=== PATIENT | male | born 1930 | race African-American/Black ===

== ENCOUNTER 2017-03-09 07:41 | Inpatient (IN) | payer OTHER ==
[~2017-03-09] VITALS: Ht 182.9 cm; Wt 85.9 kg
--- NOTE | ~2017-03-09 | EKG ---
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 <ELECTRONICALLY SIGNED> By: Daniele Delvalle MD 03/09/17 2300 9 Daniele Delvalle MD /[facility]
--- NOTE | ~2017-03-09 | 2DMMODE ---
[facility] [place] [address] 2 D/M-MODE ECHOCARDIOGRAM Name: BHARATI VALVERDE Room #: 170-10 ADM IN M.R.#: [id number] Admission: 03/09/17 Attend Phys: Tomás Wright Discharge: Date of : 31 Date of Service: 03/09/17 1354 Report #: [id number] THIS REPORT FOR: //name// APPROVED REPORT Study performed: 03/09/2017 13:14:15 EXAM: Comprehensive 2D, Doppler, and color-flow Echocardiogram Patient Location: ER Room #: 10 Status: stat BSA: 2.07 HR: 85 bpm BP: 119/48 mmHg Other Information Study Quality: Poor Technically limited study due to body habitus, lung disease, inability to position patient. Indications Aortic Valve Disease COPD Hypertension/HDD 2D Dimensions LVOT Diam: 18.56 (18-24mm) Aortic Valve AoV Peak Nathaniel.: 5.29 m/s AO Peak Gr.: 112.12 mmHg LVOT Max P.29 mmHg AO Mean Gr.: 73.22 mmHg LVOT Mean P.66 mmHg AO V2 Mean: 4.07 m/s LVOT Max V: 1.04 m/s AO V2 VTI: 117.01 cm LVOT Mean V: 0.77 m/s CHRISTAL (VTI): 0.56 cm2 LVOT V1 VTI: 24.30 cm CHRISTAL Vmax: 0.53 cm2 SV (LVOT): 65.75 mL Left Ventricle The left ventricle is normal size. Mild concentric left ventricular hypertrophy. The left ventricular systolic function is normal. The left ventricular ejection fraction is within the normal range. LVEF is 60-65%. This study is not technically sufficient to allow evaluation of the LV diastolic function. [facility] [place] [address] [place] [address] 2 D/M-MODE ECHOCARDIOGRAM Name: BHARATI VALVERDE Room #: 170[facility] ADM IN .R.#: [id number] Admission: 03/09/17 Attend Phys: Tomás Wright Discharge: Date of : 31 Date of Service: 03/09/17 1354 Report #: [id number] Right Ventricle The right ventricle is normal size. The right ventricular systolic function is normal. Atria Left atrium is dilated. Right atrium is dilated. Aortic Valve The aortic valve is normal in structure. Aortic valve is calcified. Trace aortic regurgitation. Severe aortic stenosis. Mitral Valve The mitral valve is normal in structure. There is mitral annular calcification. Mild mitral regurgitation. No evidence of mitral valve stenosis. Tricuspid Valve The tricuspid valve is normal in structure. There is no tricuspid valve regurgitation noted. Pulmonic Valve The pulmonary valve is normal in structure. There is no pulmonic valvular regurgitation. Great Vessels The aortic root is normal in size. IVC is not well visualized. Pericardium Small to moderate pericardial effusion without evidence of tamponade <Conclusion> The left ventricle is normal size. LVEF is 60-65%. Mild concentric left ventricular hypertrophy. Left atrium is dilated. Right atrium is dilated. The aortic valve is normal in structure. Aortic valve is calcified. Trace aortic regurgitation. Severe aortic stenosis. The mitral valve is normal in structure. There is mitral annular calcification. Mild mitral regurgitation. The tricuspid valve is normal in structure. [facility] [place] [address] 2 D/M-MODE ECHOCARDIOGRAM Name: NICOLLEBHARATI Room #: 170-10 ADM IN M.R.#: [id number] Admission: 03/09/17 Attend Phys: Tomás Wright Discharge: Date of : 31 Date of Service: 03/09/17 1354 Report #: [id number] The pulmonary valve is normal in structure. Small to moderate pericardial effusion without evidence of tamponade <ELECTRONICALLY SIGNED> By: Gordon Oliver MD 03/09/17 1354 1354 135 Gordon Oliver MD /INF
--- NOTE | ~2017-03-09 | H ---
[facility] [place] [place] [address] HISTORY AND PHYSICAL Name: BHARATI VALVERDE Room #: 406-P ADM IN M.R.#: [id number] Admission: 03/09/17 Attend Phys: Hector Morgan MD Discharge: Date of : 31 Report #: [id number] THIS REPORT FOR: //name// CC: Radha Morgan DATE OF SERVICE: 03/09/2017 CHIEF COMPLAINT: Weakness. HISTORY OF PRESENT ILLNESS: Most of the information was obtained from the patient's at bedside. The patient has history of dementia and unable to give me much history. The patient has history of CVA, dementia, hypothyroidism, diabetes and hypertension. He was brought into the Emergency Room because of increasing weakness. The patient's apparently called Dr. Downey couple of days ago and was instructed to hold off on the Lasix. He has had some low-grade fever. No cough, expectoration. He does have chronic shortness of breath and wheezing. The patient was apparently found to be saturating around 85% when EMS arrived. Workup in the Emergency Room so far showed an elevated troponin, also positive for influenza. PAST MEDICAL HISTORY: Significant for CVA, dementia. He has right-sided weakness, hypertension, hyperlipidemia, diabetes, anemia, depression, COPD, hypothyroidism, prostate cancer. PAST SURGICAL HISTORY: Significant for lithotripsy, TURP, right rotator cuff . ALLERGIES: THE PATIENT IS ALLERGIC TO AVELOX, PENICILLIN, LORAZEPAM, PLEASE LOOK AT THE NURSING DOCUMENTATION FOR REACTION. HOME MEDICATIONS: Reviewed, please look at the nursing documentation. SOCIAL HISTORY: The patient lives at home. He has history of dementia. No history of any smoking, alcohol abuse at present. REVIEW OF SYSTEMS: Unable to obtain. FAMILY HISTORY: Unable to obtain. PHYSICAL EXAMINATION: VITAL SIGNS: Reviewed. Blood pressure is 127/48. Heart rate is 90 per minute, afebrile. The patient is saturating 97% on 2 liters of oxygen. GENERAL: He is not in any acute respiratory distress. He does answer some simple questions and follows command. THROAT: He has a dry oral mucosa. [facility] [address] [place] [address] HISTORY AND PHYSICAL Name: BHARATI VALVERDE Room #: 406-P [facility] IN M.R.#: [id number] Admission: 03/09/17 Attend Phys: Hector Morgan MD Discharge: Date of : 31 Report #: [id number] NECK: Supple, no JVD, no bruit, no lymphadenopathy. CARDIOVASCULAR: S1, S2. No S3. CHEST: Bilateral air entry present, mostly clear, few wheezes noted in the bases. ABDOMEN: Soft, bowel sounds present, no mass, no organomegaly, no tenderness. PERIPHERY: No pedal edema. LABORATORY DATA: Reviewed. Lactic acid was then is elevated at 3.2. His hemoglobin is 13.2 and platelet is 142. BUN and creatinine are 19 and 1.3. Troponin is 1.50. TSH 2.20. EKG showed sinus tachycardia, abnormal R-wave progression, early transition. Chest x-ray showed no acute process. ASSESSMENT: 1. Generalized weakness and debility secondary to influenza. 2. Influenza. The patient will be started on p.o. Tamiflu. 3. Dehydration. The patient will be started on gentle IV fluids. We will hold off on his Lasix. We will consult Physical and Occupational Therapy in a.m. 4. Elevated troponin, could be secondary to hypoxia. We will get serial troponin. The patient will be continued on aspirin. We will obtain echocardiogram. Project Archivist, Dr. Downey has been consulted. 5. Deep venous thrombosis prophylaxis. He will be on Lovenox. 6. Diabetes. The patient will be placed on sliding scale insulin. 7. History of dementia/cerebrovascular accident with right-sided weakness. 8. Elevated lactic acid, likely secondary to hypoxia, early sepsis. We will obtain blood cultures and start him on IV Zithromax. Treatment plan has been explained to the patient's at bedside in detail. <ELECTRONICALLY SIGNED> By: Hector Morgan MD 03/09/17 1859 1348 1451 Hector Morgan MD /nt
--- NOTE | ~2017-03-09 | HC ---
[facility] [place] [address] [place] [address] CONSULTATION Name: BHARATI VALVERDE Room #: [facility]- ADM IN M.R.#: [id number] Admission: 03/09/17 Attend Phys: Hector Morgan MD Discharge: Date of : 31 Report #: [id number] THIS REPORT FOR: //name// CC: Radha Morgan HISTORY OF PRESENT ILLNESS: The patient is an 86-year-old male who is known to myself. We do follow him somewhat longitudinally. He has been fairly debilitated with right-sided hemiparesis and critical aortic valve stenosis, recurrent heart failure issues, but he has been stable from that perspective. He is somehow functional class 2-3, lives with the and daughter. He has been out of the hospital for some time. I saw him last in the office in 06/2016. He has been compliant with his medications. He has had 3-4 days of increased somnolence and felt to be somewhat poor oral intake. We had held his diuretics for a couple of days. Came in with some shortness of breath and coughing. Subsequently, found to have influenza A. He was hypoxic initially. He is definitely progressively weak over the last few days. He is not really responding to me, although will respond to some stimuli. He has been maintained on holding Lasix, but then otherwise on venlafaxine, ProAir, Colace, allopurinol, baby aspirin, simvastatin, Lupron, Aricept, albuterol, Namenda, Synthroid. PAST MEDICAL HISTORY: Positive for the critical senile calcific aortic valve stenosis, hypertension, prior stroke with hemiparesis, hypercholesterolemia, lithotripsy, rotator cuff, TURP resection, aphasia, dementia, chronic kidney disease and diabetes. REVIEW OF SYSTEMS: Really not obtainable here. FAMILY HISTORY: His mother had cancer. Also, the sister with a renal cell. SOCIAL HISTORY: He is , accompanied by his . Prior tobacco user. No alcohol use. He is retired. LABORATORY WORK: Sodium 138, potassium 4.0, creatinine 1.3. BNP 876. H and H are 13 and 40, white count 6.2. Chest x-ray: No acute process. He is positive for influenza A. The troponin was 1.5. I suspect this is more of a mismatch hypoxemia driven. There is no acute infarct on his EKG. EKG is sinus rhythm with nonspecific changes, it is unchanged. PHYSICAL EXAMINATION: GENERAL: He is not responsive. VITAL SIGNS: Blood pressure is 120/54, pulse is 90s currently and regular. HEENT: Eyes reveal some arcus senilis. Pharynx has dry mucous membranes. NECK: Shows preserved diminished upstrokes. No JVD. LUNGS: Clear anteriorly. CARDIAC: S1, S2. Harsh systolic murmur is noted. The findings of the [facility] [address] [place] [address] CONSULTATION Name: BHARATI VALVERDE Room #: [facility]- ADM IN M.R.#: [id number] Admission: 03/09/17 Attend Phys: Hector Morgan MD Discharge: Date of : 31 Report #: [id number] on the last echo appeared to be more evidence of mild. There is a harsh murmur that is faint on this exam, upstrokes. ABDOMEN: Soft, slightly protuberant. EXTREMITIES: Reveal trace of edema. There is some hemiparesis. There is some atrophy on the right side. NEUROLOGIC: Not really obtainable. ASSESSMENT: 1. Influenza A with hypoxemia. 2. Troponin elevation, probable due to mismatch and not true ischemic event. No documented coronary artery disease. 3. Varying reports on degree of aortic valve stenosis. Heavily calcified. We will wait, repeat echo. 4. History of cerebrovascular accident with hemiparesis. 5. Hypertension. 6. Hypercholesterolemia. 7. Diabetes. RECOMMENDATIONS AND PLAN: Would repeat troponin and an echo, although I do not pursue this is a significant epicardial coronary disease. The patient is not responsive and at this point, would like to see how he responds to antibiotics and fluid hydration. There is some component of azotemia here. has power of sap ppm consultant and wants him to continue to be a full code. We will place him on a med/surg tele. We will continue to follow with you, but would continue more along the conservative lines and not looking for unless there would be hemodynamic instability or more evidence of LV compromise or ischemic event. I would not proceed for any intervention or catheterization lab at this time. We will follow with you. Thank you for asking me to assist care of this patient. <ELECTRONICALLY SIGNED> By: Michael Downey MD, FACC 03/13/17 0902 1315 0200 Michael Downey MD, FACC /nt
[~2017-03-09 07:41] MED LIST: ADULT LOW DOSE81 MG PO; ALBUTEROL2.5 MG/31 INH; ALBUTEROL2.5 MG/32 IH; ALLOPURINOL 30300 M1 PO; ARICEPT10 MG PO; BACTRIM DS TAB1 EACH PO; BD ULTRA-FINE1 EAC1 MC; CERTAGEN SOL1 BO1 NG; CLARITIN10 MG PO; CLOTRIMAZOLE-BE15 GM TOP; COLACE100 MG PO; FERRO-TIME325 MG PO; FUROSEMIDE 20 M20 M1 PO; GLIPIZIDE 10 MG10 MG PO; GLIPIZIDE ER10 MG PO; GLUCOTROL10 MG PO; GLUCOTROL5 MG PO; IRON CHEWS15 MG PO; LASIX 20 MG TAB20 MG PO; LEVOTHYROXIN0.025 MG PO; LUPRON; LUPRON DEPOT IM; MEGESTROL ACETA20 MG PO; METFORMIN 500500 MG PO; METOPROLOL TART25 MG PO; MUCINEX600 MG PO; NAMENDA 10 MG T10 MG PO; NIACIN 500 MG500 M1 PO; NIACINOL500 MG PO; NORCO 5-325 TA1 EACH PO; OMEGA-31000 MG PO; ONE DAILY MULT1 EAC2 PO; PAXIL 20 MG TAB20 M1 PO; PROAIR HFA8.5 GM INH; SIMVASTATIN40 MG PO; SIMVASTATIN80 MG PO; SYMBICORT80 MCG/4.1 INH; SYMBICORT80 MCG/4.5 INH; TOPROL XL25 MG PO; VENLAFAXINE HCL75 M2 PO; VITAMIN E400 UNIT PO; ZPAK PO; ZYRTEC 10 MG TA10 M1 PO
[2017-03-09 08:35] LABS: HEMATOCRIT 40.7 % (42.0-52.0); HEMOGLOBIN 13.1 gm/dL (14.0-18.0); MCH 28.6 pg (26.0-34.0); MCHC 32.2 g/dL (28.0-37.0); MCV 88.8 fL (80.0-100.0); RBC 4.58 mil/uL (4.50-6.00); RDW 15.3 % (10.5-14.5); WBC 6.2 thou/uL (4.0-11.0)
[2017-03-09 08:45] LABS: CALCIUM 8.9 mg/dL (8.5-10.1); CREATININE 1.3 mg/dL (0.7-1.3)
[2017-03-09 09:00] LABS: TROPONIN-I 1.5 ng/mL (<0.06)
[2017-03-09 13:06] VITALS: BP 127/48
[2017-03-09 13:55] VITALS: BP 127/48
[2017-03-09 14:25] VITALS: BP 133/52
[2017-03-09 20:44] VITALS: BP 141/57
[2017-03-09 23:54] VITALS: BP 135/55
[2017-03-10 04:12] VITALS: BP 131/56
[2017-03-10 06:32] LABS: HEMATOCRIT 35.3 % (42.0-52.0); HEMOGLOBIN 11.3 gm/dL (14.0-18.0); MCH 28.3 pg (26.0-34.0); MCHC 32.2 g/dL (28.0-37.0); PLATELET COUNT 127 thou/uL (150-400); RBC 4.01 mil/uL (4.50-6.00); RDW 15.4 % (10.5-14.5); WBC 5.1 thou/uL (4.0-11.0)
[2017-03-10 06:50] LABS: CALCIUM 8.1 mg/dL (8.5-10.1); CREATININE 1.1 mg/dL (0.7-1.3); POTASSIUM 4.2 mmol/L (3.5-5.1)
[2017-03-10 06:55] LABS: CHOLESTEROL 105 mg/dL (<200); HDL CHOLESTEROL 67 mg/dL (>40); LDL CHOLESTEROL 32 mg/dL (<100); SERUM ASSESSMENT Clear; TC:HDL 1.6 Ratio (Not establshd); TRIGLYCERIDE 34 mg/dL (<150); VLDL 7 mg/dL (<40)
[2017-03-10 08:00] VITALS: BP 140/61
[2017-03-10 08:30] LABS: ABSOLUTE NEUTROPHILS 4.5 thou/uL (1.4-8.2); METAMYELOCYTES 2 %
[2017-03-10 16:05] VITALS: BP 131/50
[2017-03-10 19:16] VITALS: BP 123/43
[2017-03-11 03:45] VITALS: BP 151/58
[2017-03-11 06:41] LABS: HEMATOCRIT 34.3 % (42.0-52.0); MCH 28.4 pg (26.0-34.0); MCHC 32.2 g/dL (28.0-37.0); RBC 3.89 mil/uL (4.50-6.00); RDW 15.4 % (10.5-14.5); WBC 5.5 thou/uL (4.0-11.0)
[2017-03-11 06:59] LABS: CALCIUM 7.9 mg/dL (8.5-10.1); CREATININE 1.1 mg/dL (0.7-1.3); POTASSIUM 3.8 mmol/L (3.5-5.1); TOTAL BILIRUBIN 0.2 mg/dL (<0.1-1.0); TOTAL PROTEIN 5.8 g/dL (6.4-8.2)
[2017-03-11 08:54] VITALS: BP 141/55
[2017-03-11 15:35] VITALS: BP 157/73
[2017-03-11 19:52] VITALS: BP 170/79
[2017-03-12 04:00] VITALS: BP 164/79
[2017-03-12 04:42] LABS: ALBUMIN 2.1 g/dL (3.4-5.0); CALCIUM 8.1 mg/dL (8.5-10.1); POTASSIUM 3.6 mmol/L (3.5-5.1); TOTAL BILIRUBIN 0.3 mg/dL (<0.1-1.0)
[2017-03-12 08:00] VITALS: BP 162/79
[2017-03-12 16:00] VITALS: BP 129/60
[2017-03-12 20:05] VITALS: BP 165/65
[2017-03-13 04:15] VITALS: BP 166/72
[2017-03-13 07:47] VITALS: BP 169/76
[2017-03-13] MEDS ORDERED: TAMIFLU30 MG PO (12:41)
[2017-03-13 13:33] VITALS: BP 169/76
[2017-03-13 16:32] VITALS: BP 170/86
[2017-03-13 20:00] VITALS: BP 154/72
[2017-03-14] VITALS: BP 148/78
[2017-03-14 04:00] VITALS: BP 140/62
[2017-03-14 07:53] VITALS: BP 118/72
[2017-03-14] MEDS ORDERED: AZITHROMYCIN 2250 MG PO (09:14)
== END 2017-03-14 13:45 | disposition home health service (06) | DRG 871 ==
LOC: ER 07:41 → EROBS 09:21 → 4N 09:21 → ENTRNSPT 03-14 13:28 → EDTRNSPTSTS 03-14 13:30 → 4N 03-14 13:45
PROVIDERS: Emergency Medicine; Hospitalist; Internal Medicine
DX: A41.9 Sepsis, unspecified organism (principal); E43 Unspecified severe protein-calorie malnutrition; I69.959 Hemiplegia and hemiparesis following unspecified cerebrovascular disease affecting unspecified side; I12.0 Hypertensive chronic kidney disease with stage 5 chronic kidney disease or end stage renal disease; J09.X2 Influenza due to identified novel influenza A virus with other respiratory manifestations; F03.90 Unspecified dementia, unspecified severity, without behavioral disturbance, psychotic disturbance, mood disturbance, and anxiety; E03.9 Hypothyroidism, unspecified; E78.00 Pure hypercholesterolemia, unspecified; F32.9 Major depressive disorder, single episode, unspecified; E11.22 Type 2 diabetes mellitus with diabetic chronic kidney disease; N18.9 Chronic kidney disease, unspecified; I35.8 Other nonrheumatic aortic valve disorders; E86.0 Dehydration; E78.5 Hyperlipidemia, unspecified; D69.6 Thrombocytopenia, unspecified; J44.9 Chronic obstructive pulmonary disease, unspecified; D64.9 Anemia, unspecified; Z87.442 Personal history of urinary calculi; Z88.1 Allergy status to other antibiotic agents; Z88.0 Allergy status to penicillin; Z88.8 Allergy status to other drugs, medicaments and biological substances; Z85.46 Personal history of malignant neoplasm of prostate; Z79.82 Long term (current) use of aspirin; Z79.899 Other long term (current) drug therapy
CPT/HCPCS: 10790

== ENCOUNTER → 2017-03-30 | Outpatient (CLI) | payer OTHER ==
[~2017-03-30] MED LIST changes: +AZITHROMYCIN 2250 MG PO; +TAMIFLU30 MG PO
[2017-03-30 10:40] LABS: CREATININE 1.4 mg/dL (0.7-1.3)
== END ==
LOC: LABMALL 09:56 → NUC 15:46
PROVIDERS: Urology
DX: N20.0 Calculus of kidney (principal); N28.89 Other specified disorders of kidney and ureter; F03.90 Unspecified dementia, unspecified severity, without behavioral disturbance, psychotic disturbance, mood disturbance, and anxiety

== ENCOUNTER 2018-03-22 15:50 | Inpatient (IN) | payer OTHER ==
[~2018-03-22] VITALS: Ht 182.9 cm; Wt 99.6 kg
[2018-03-22] VITALS (18 sets, daily range): BP systolic 79–149; BP diastolic 27–63
--- NOTE | 2018-03-22 16:00 | NUR ---
ASSUMED PT CARE, REPORT FROM OZZY SEE
[2018-03-22 16:12] LABS: ABSOLUTE NEUTROPHILS 3.2 thou/uL (1.4-8.2); BASOPHILS 0.2 % (0.0-2.0); EOSINOPHILS 0.2 % (0.0-3.0); HEMATOCRIT 28.5 % (42.0-52.0); HEMOGLOBIN 9.1 gm/dL (14.0-18.0); LYMPHOCYTES 35.8 % (24.0-44.0); MCH 29.4 pg (26.0-34.0); MCHC 31.8 g/dL (28.0-37.0); MCV 92.5 fL (80.0-100.0); MONOCYTES 6.7 % (1.0-8.0); PLATELET COUNT 175 thou/uL (150-400); POLYS 57.1 % (36.0-66.0); RBC 3.08 mil/uL (4.50-6.00); RDW 15.4 % (10.5-14.5); WBC 5.7 thou/uL (4.0-11.0)
--- NOTE | 2018-03-22 16:22 | EKG ---
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: [place] : 1930 Requested By: Nate Mckenna Order Number: [id number] MD: Waqas Rodriguez Measurements Intervals Inez Rate: 66 P: -22 [place]: 215 QRS: 36 QRSD: 78 T: 58 QT: 491 QTc: 515 Interpretive Statements Sinus rhythm First-degree AV block Abnormal R-wave progression, early transition Prolonged QT interval Compared to ECG 03/09/2017 08:40:44 Sinus tachycardia no longer present Electronically Signed On 03-22-2018 16:22:00 ROLL OPERATOR by Waqas Rodriguez [email or web address] <ELECTRONICALLY SIGNED> By: Waqas Rodriguez MD, [facility] 03/22/18 1622 1555 1555 Waqas Rodriguez MD, FACC /EPI
[2018-03-22 16:23] LABS: ANION GAP 13 mmol/L (7-16); BUN 63 mg/dL (7-18); CALCIUM 8.5 mg/dL (8.5-10.1); CHLORIDE 108 mmol/L (98-107); CO2 21 mmol/L (21-32); CREATININE 1.7 mg/dL (0.7-1.3); GLUCOSE 375 mg/dL (74-106); POTASSIUM 4.6 mmol/L (3.5-5.1); SODIUM 142 mmol/L (136-145)
[2018-03-22 16:27] LABS: APTT 23.8 Seconds (24.5-32.8); INR 1.1; PROTIME 11.4 Seconds (9.3-11.4)
[2018-03-22 16:30] LABS: ALBUMIN 2.2 g/dL (3.4-5.0); MAGNESIUM 2.1 mg/dL (1.8-2.4); SGOT 27 U/L (15-37); SGPT 24 U/L (30-65); TOTAL BILIRUBIN 0.1 mg/dL (<0.1-1.0); TOTAL PROTEIN 5.5 g/dL (6.4-8.2); TROPONIN-I <0.06 ng/mL (<0.06)
[2018-03-22 17:38] LABS: URINE BILIRUBIN NEGATIVE (Negative); URINE BLOOD 1+ (Negative); URINE CLARITY CLEAR; URINE COLOR YELLOW; URINE GLUCOSE-RANDOM* 3+ (Negative); URINE KETONES NEGATIVE (Negative); URINE LEUKOCYTES-REFLEX NEGATIVE (Negative); URINE NITRITE-REFLEX NEGATIVE (Negative); URINE PROTEIN (DIPSTICK) TRACE (Negative); URINE SPECIFIC GRAVITY 1.025 (1.005-1.035); URINE UROBILINOGEN 0.2 E.U./dl (0.2-1.0)
[2018-03-22 17:45] LABS: AMP/METHAMP Negative (Negative); BARBITURATES Negative (Negative); BENZODIAZEPINES Negative (Negative); COCAINE Negative (Negative); METHADONE Negative (Negative); OPIATES Negative (Negative); PCP Negative (Negative)
[2018-03-22 17:46] LABS: URINE RBC 0-2 Rare /HPF (0-2)
[2018-03-22 17:47] LABS: BACTERIA-REFLEX 1-9 Few /HPF (None Seen); CASTS None Seen /LPF (None Seen); CRYSTALS None Seen /LPF (None Seen); SQUAMOUS 0-3 Few /LPF (0-3); URINE WBC-REFLEX None Seen /HPF (0-5)
--- NOTE | 2018-03-22 17:52 | NUR ---
REPORT TO MITCH IN ICU
[2018-03-22 22:34] LABS: HEMATOCRIT 25.7 % (42.0-52.0); HEMOGLOBIN 8.3 gm/dL (14.0-18.0)
[2018-03-23] VITALS (29 sets, daily range): BP systolic 86–134; BP diastolic 27–49
[2018-03-23 05:27] LABS: HEMATOCRIT 23.5 % (42.0-52.0); HEMOGLOBIN 7.6 gm/dL (14.0-18.0); MCH 28.9 pg (26.0-34.0); MCHC 32.2 g/dL (28.0-37.0); RBC 2.61 mil/uL (4.50-6.00); RDW 15.1 % (10.5-14.5); WBC 7.1 thou/uL (4.0-11.0)
[2018-03-23 05:40] LABS: CALCIUM 8.1 mg/dL (8.5-10.1); CREATININE 1.2 mg/dL (0.7-1.3); POTASSIUM 4.7 mmol/L (3.5-5.1)
--- NOTE | 2018-03-23 06:44 | NUR ---
PT IS CONFUSED, PLEASANT. SEVERAL ATTEMPTS TO GET OUT BED. EASILY REDIRECTED AND FOLLOW COMMANDS. NO PAIN. VSS. AFEBRILE. NO BM DURING THE NIGHT. PROTONIX GTT ONGOING. WILL CONTINUE TO MONITOR.
[2018-03-23 14:14] LABS: HEMATOCRIT 22.4 % (42.0-52.0); HEMOGLOBIN 7.2 gm/dL (14.0-18.0)
--- NOTE | 2018-03-23 16:34 | NUR ---
ASSUMED CARE OF PT AT 0700 THIS SHIFT. PT HAS BEEN COOPERATIVE, HAS DENIED ANY PAIN THIS SHIFT. PT IS ORIENTED TO SELF AND SPOUSE, NOT ORIENTED TO SITUATION, PLACE, OR TIME - PT'S BASELINE. PT HAD EGD THIS SHIF, REFER TO RESULTS. PT HAS A FOLLOW UP EGD TOMRROW MORNING. PT HAS HAD SPOUSE IN ROOM, EDUCATION WAS PROVIDED. PLAN OF CARE IS TO CONTINUE TO MONITOR CLOSELY AT THIS TIME.
[2018-03-23 22:18] LABS: HEMATOCRIT 21.2 % (42.0-52.0); HEMOGLOBIN 6.8 gm/dL (14.0-18.0)
[2018-03-24] VITALS (28 sets, daily range): BP systolic 103–140; BP diastolic 35–65
[2018-03-24 05:14] LABS: HEMATOCRIT 24.3 % (42.0-52.0); HEMOGLOBIN 7.9 gm/dL (14.0-18.0); MCH 30.9 pg (26.0-34.0); MCHC 32.6 g/dL (28.0-37.0); MCV 94.7 fL (80.0-100.0); RBC 2.57 mil/uL (4.50-6.00); RDW 16.1 % (10.5-14.5); WBC 9.2 thou/uL (4.0-11.0)
[2018-03-24 05:19] LABS: CALCIUM 7.8 mg/dL (8.5-10.1); MAGNESIUM 1.8 mg/dL (1.8-2.4); POTASSIUM 3.8 mmol/L (3.5-5.1)
--- NOTE | 2018-03-24 05:56 | NUR ---
CONFUSED, DROWSY. RA. NO APPARENT PAIN. FOLLOW COMMANDS. VSS. AFEBRILE. 1 UNIT OF BLOOD GIVEN, HGB AT 7.9 THIS AM. URINE OUTPUT NOTED. WILL CONTINUE TO MONTIOR.
--- NOTE | 2018-03-24 12:06 | NUR ---
ASSUMED CARE OF PT AT 0700 THIS SHIFT. PT HAS BEEN COOPERATIVE, HAS DENIED ANY PAIN THIS MORNING. PT HAD EGD THIS MORNING, RESULTS ARE DOCUMENTED. PT TOLERTED PROCEDURE WELL, CURRENTLY RESTING COMFORTABLY IN ROOM. PT HAS HAD FAMILY VISIT, EDUCATION WAS PROVIDED. PLAN OF CARE IS TO CONTINUE TO MONITOR PT CLOSELY.
--- NOTE | 2018-03-24 15:38 | NUR ---
ASSUMED CARE AT 1300. PT ALERT TO SELF. PT APPEARS TO BE RESTING COMFORTABLY. PT VERY COOPERATIVE AND TURNS HIMSELF IN BED. AT BEDSIDE.
[2018-03-25] VITALS (44 sets, daily range): BP systolic 85–154; BP diastolic 24–59
--- NOTE | 2018-03-25 02:39 | NUR ---
ASSUMED PT CARE AT ABOUT 2300. PT WAS IN BED SLEEPING. VITAL SIGNS STABLE. ASSESSMENT CHARTED. NO COMPLAINTS OF PAIN. PT VERY PLEASANT AND SEEMED COMFORTABLE. PT TRIED TO GET OUT OF BED A FEW TIMES, FREQUENT REORIENTATION. PT ABLE TO FOLLOW SIMPLE COMMANDS. STILL VERY CONFUSED. HGB @ 2300 WAS 7.7. WILL RECHECK WITH MORNING LABS. RESTED WELL THROUGH THE NIGHT, PTROGRESING TOWARD PLAN OF CARE. WILL CONTINUE TO CLOSELY MONITOR.
[2018-03-25 05:23] LABS: HEMATOCRIT 22.8 % (42.0-52.0); HEMOGLOBIN 7.4 gm/dL (14.0-18.0); MCH 30.1 pg (26.0-34.0); MCHC 32.3 g/dL (28.0-37.0); MCV 93.2 fL (80.0-100.0); RBC 2.44 mil/uL (4.50-6.00); RDW 16.3 % (10.5-14.5); WBC 6.6 thou/uL (4.0-11.0)
[2018-03-25 05:29] LABS: CALCIUM 7.9 mg/dL (8.5-10.1); MAGNESIUM 1.8 mg/dL (1.8-2.4); POTASSIUM 3.4 mmol/L (3.5-5.1)
--- NOTE | 2018-03-25 15:13 | NUR ---
met with patient and at bedside. Patient with hx of dementia, sp with . Patient resides at home with spouse. There are approx 5 steps to enter home and bedroom on second level. patient does not use a walker but has one at home. Patient, spouse for approx [address]. 3 children, 2 sons and one dtr. Dtr assists with driving. If patient need for post acute care they would be interested in [facility]. patient admits with GI bleed, patient with bloody stools today.
--- NOTE | 2018-03-25 18:40 | NUR ---
VASCULAR ACCESS CONSULTED FOR A CL FOR THIS PT FOR MULITPLE IV MEDS, BLOOD TRANSFUSIONS AND IVF. CONSENTED AND TIME OUT COMPLETED WITH LEODAN SEE. ACCESSED LT IJ X1 ATTEMPT WITH US GUIDE AND USED HOSP P&P TO PLACED THE LINE. A 6FRTL 25CM LINE PLACED IN LT IJ WITH 5CM EXTERNAL WITH A BRISK BLOOD RETURN OBTAINED. A CXR REVEALED THE TIP AT THE CAJ AND IN GOOD POSITION FOR USE. PT DAISY WELL, LINE RELEASED TO RN FOR USE.
--- NOTE | 2018-03-25 19:41 | NUR ---
ASSUMED CARE OF PATIENT AT 0700. PT MAINTAINING ADEQUATE OXYGEN SATURATIONS ON 2L N/C. HR ELEVATED SLIGHTLY ALL DAY. BP ELEVATED FIRST EARLY THIS MORNING BUT BECAME "SOFT" IN THE AFTERNOON. DISCUSSED TREATMENT PLAN WITH FAMILY. PT HAD LARGE LIQUID DARK MAROON COLORED, FOUL-SMELLING STOOL. MAP <60. HGB DROPPED FROM 7.[address] SANCHEZ INFORMED OF CHANGE IN CONDITION. NEW ORDERS RECEIVED TO TRANSFUSE 2 UNITS PRBCS, CONTINUE PROTONIX GTT, LEAVE IN ICU, AND DELIVER A LITER BOLUS WHILE WAITING FOR BLOOD TO BE READY TO TRANSFUSE. RECEIVED ORDER FOR CENTRAL LINE AND LEVOPHED IF NEEDED FROM DR FRANCIS. BP IMPROVED. CONINUE TO MONITOR.
--- NOTE | 2018-03-25 20:00 | NUR ---
PT HAD A LARGE MAROON STOOL. BLOOD HAS INFUSED.
[2018-03-25 21:13] LABS: HEMATOCRIT 23.7 % (42.0-52.0); HEMOGLOBIN 8.2 gm/dL (14.0-18.0)
--- NOTE | 2018-03-25 22:30 | NUR ---
BATHING PT. ALL OF A SUDDEN PT GROWLED LOUDLY LIKE A BEAR AND SAT UP ON THE SIDE OF THE BED. HE TRIED TO SWING AT ME. SECURITY CALLED. PT IS VERY STRONG,. IT TOOK 4 RNS AND SECURITY TO CALM AND HOLD HIM DOWN FIELDWORK COORDINATOR Nicole GÓMEZ RN CALLED [facility] 10 MG IM ORDERED AND GIVEN FOR SEDATION. WILL CONT TO MONITOR CLOSELY.
[2018-03-26] VITALS (25 sets, daily range): BP systolic 110–166; BP diastolic 27–54
[2018-03-26 05:38] LABS: ABSOLUTE NEUTROPHILS 5.8 thou/uL (1.4-8.2); BASOPHILS 0.1 % (0.0-2.0); EOSINOPHILS 0.3 % (0.0-3.0); HEMATOCRIT 22.6 % (42.0-52.0); HEMOGLOBIN 7.4 gm/dL (14.0-18.0); MCH 28.9 pg (26.0-34.0); MCHC 32.7 g/dL (28.0-37.0); MCV 88.4 fL (80.0-100.0); MONOCYTES 8.9 % (1.0-8.0); PLATELET COUNT 88 thou/uL (150-400); POLYS 74.7 % (36.0-66.0); RBC 2.56 mil/uL (4.50-6.00); WBC 7.7 thou/uL (4.0-11.0)
--- NOTE | 2018-03-26 06:00 | NUR ---
PT HAS BEEN CALM ALL NOCT SINCE GEODON GIVEN. 450 CC UO THIS SHIFT REMAINS ON ROOM AIR. O2 SAT 100 %. AFEBRILE LUNGS CLEAR. NO FURTHER BLOODY STOOLS. PT HAS VERY FOUL FLATUS ODOR LIKE GI BLEEDING. BATHED REPSOITIONED. SINUS RHYTHM. WILL CONT TO MONITOR.
[2018-03-26 06:27] LABS: POTASSIUM 3.6 mmol/L (3.5-5.1)
--- NOTE | 2018-03-26 19:40 | NUR ---
ASSUMED CARE OF PT AT 0700. MAINTAINING ADEQUATE OXYGEN SATURATIONS ON ROOM AIR. VSS. SBP >120 ALL DAY TODAY. NOT ON VASOPRESSORS. NO MAROON COLORED LIQUD STOOLS TODAY, JUST PASSING FOUL SMELLING FLATUS. SMELL CONSISTENT WITH GI BLEED. DISCUSSED TREATMENT PLAN WITH (GRISEL). DUE TO DECREASE IN HGB AND ADDITIONAL MAROON STOOL ON GUYLINE OPERATOR, DR Alvarez PERFORMED EGD WITH CAUTERIZATION OF FRIABLE AREAS IN STOMACH AND DUODENUM. PT TOLERATED PROCEDURE WELL. CONSENT OBTAINED FROM SPOUSE/DPOA. TOLERATING PUREED, HONEY-THICK LIQUID DIET. PT TRIED TO GET OUT OF BED ONCE THIS EVENING. ABLE TO REDIRECT. PT A & O X 1 ONLY (PERSON). CONTINUE TO MONITOR.
[2018-03-27] VITALS (15 sets, daily range): BP systolic 115–143; BP diastolic 22–81
--- NOTE | 2018-03-27 07:23 | NUR ---
Pt a/o to self, calm, coorperative. RA. No s/s of bleeding noted. BP and all other vital signs stable. No BM noted. No apparent distress noted. Bed alarm on. Fall precautions maintained. Call light within reach. Shift change completed with incoming day-shift RN.
[2018-03-27 10:25] LABS: HEMATOCRIT 20.7 % (42.0-52.0); HEMOGLOBIN 7.1 gm/dL (14.0-18.0)
--- NOTE | 2018-03-27 15:52 | NUR ---
0900 PT ALERT TO SELF AND PLACE, ASSISTED PT WITH BREAKFAST, TOLERATED 100% WITHOUT SWALLOWING DIFFICULTIES. SON AT BEDSIDE. 1145 PT UP TO CHAIR FOR LUNCH, ABLE TO FEED SELF SLIGHTLY BETTER IN CHAIR, TOLERATED 100%. SPEECH AT CHAIR SIDE EVALUATING PT. 1300 PT ALERT TO SELF AND PLACE, WATCHING BASKETBALL ON TV, OT ASSISTING WITH SPONGE BATH, PT HAD MEDIUM SIZED BOWEL MOVEMENT, DARK MAROON IN COLOR, THICK FORMED CONSISTENCY. SPOKE WITH GRISEL (PT ) VIA PHONE, UPDATED ON CURRENT PLAN, LABS, VITAL SIGNS AND ACTIVITIES TODAY. VITAL SIGNS STABLE THROUGHOUT DAY, WILL MONITOR CLOSELY.
[2018-03-27 23:02] LABS: HEMATOCRIT 20.8 % (42.0-52.0); HEMOGLOBIN 6.6 gm/dL (14.0-18.0)
[2018-03-28] VITALS (10 sets, daily range): BP systolic 114–138; BP diastolic 52–66
--- NOTE | 2018-03-28 03:58 | NUR ---
PT. ALERT TO PERSON; COOPERATIVE; CALM; VS WNL; HMG 6.6 AT 2230; CHANNEL REBUILDER CONTACTED; ORDERS RECEIVED; ONE UNIT BLOOD TRANSFUTION; VS WNL DURING TRANSFUTION; SMEAR BM; DARK BROWN-RED; ST NO PAIN; ABLE TO REST DURING THE NIGHT; ASSESSMENT CHARGED; FOLLOWING POC; FALL AGREEMENT NO SIGN; WILL PASS ON REPORT.
[2018-03-28 10:28] LABS: HEMOGLOBIN 8.1 gm/dL (14.0-18.0); MCH 28.5 pg (26.0-34.0); MCHC 32.5 g/dL (28.0-37.0); MCV 87.7 fL (80.0-100.0); RBC 2.85 mil/uL (4.50-6.00); RDW 16.6 % (10.5-14.5); WBC 7.3 thou/uL (4.0-11.0)
[2018-03-28 10:46] LABS: ALBUMIN 1.7 g/dL (3.4-5.0); CALCIUM 7.9 mg/dL (8.5-10.1); POTASSIUM 3.2 mmol/L (3.5-5.1); TOTAL BILIRUBIN 0.3 mg/dL (<0.1-1.0); TOTAL PROTEIN 4.8 g/dL (6.4-8.2)
--- NOTE | 2018-03-28 12:08 | PATH ---
[facility] [address] [place] [address] PATHOLOGY RPT PROCEDURE Name: BHARATI VALVERDE Room #: 206-P ADM IN M.R.#: [id number] Admission: 03/22/18 Date of : 32 Discharge: Report #: [id number] Path Case #: [id number] [facility] Accession Number: [id number] . 01 Material submitted: . BX GASTRIC ULCER . 01 Clinical history: . Pre-op diagnosis: Upper GI bleed Post-op diagnosis: Gastric ulcer . 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 - Negative for atrophy or dysplasia. - Negative for Helicobacter pylori (properly controlled immunohistochemical stain performed). [facility]03/27/2018 . 02 Comment: An intensive search for Helicobacter pylori-like organisms is negative. Absence of such organisms does not entirely exclude the possibility and may be due to sampling. Other possible etiologies may include chemical gastritis, autoimmune gastritis, gastritis associated with inflammatory bowel disease. Please correlate with clinical, endoscopic, and microbiological studies if clinically indicated. . (IUV:pit 03/27/2018) . 02 Electronically signed: . La Perez MD, Pathologist NPI- [id number] . 01 Gross description: . The specimen is received in formalin, labeled "Bharati Valverde, gastric ulcer". Received are three segments of pale gonzales soft tissue ranging in size from 0.3 to 0.4 cm in maximum dimensions. The specimen is submitted entirely in cassette A1. (CAA; 03/26/2018) QAC/QAC . 02 Pathologist provided ICD-10: K29.50 . 02 CPT . [id number], [id number] [address] [address] PATHOLOGY RPT PROCEDURE Name: BHARATI VALVERDE Room #: 206-P ADM IN M.R.#: [id number] Admission: 03/22/18 Date of : 31 Discharge: Report #: [id number] Path Case #: [id number] Specimen Comment: A courtesy copy of this report has been sent to Specimen Comment: [phone], , . Specimen Comment: Report sent to ,DR FRANCIS / DR CABA Specimen Comment: A duplicate report has been generated due to demographic updates. Performed at: [address] [facility], [place], [place] [id number] MD Aroldo Richards MD Phone: [phone] Performed at: [address] [id number] MD La Perez MD Phone: [phone]
--- NOTE | 2018-03-28 15:00 | NUR ---
[facility] rehab medicine has evaluated the pt and can accept him for a 5N stay when medically ready. All parties updated.
--- NOTE | 2018-03-28 18:16 | NUR ---
ASSESSMENT DOCUMENTED. PT ALERT AND ORIENTED TO SELF. VSS. DENIED HAVING PAIN OR DISCOMFORT. EVALUATED BY PT/OT/ AND DR MAGDALENO FROM REHAB. HAD TWO BLACK BM THIS SHIFT. SEEN BY GI . ORDERS NOTED. PROGRESSING SLOWLY TOWARDS DISCHARGE GOAL. WILL CONTINUE TO MONITOR.
[2018-03-28 23:39] LABS: HEMATOCRIT 23.9 % (42.0-52.0); HEMOGLOBIN 7.9 gm/dL (14.0-18.0)
[2018-03-29 05:00] VITALS: BP 123/57
[2018-03-29 07:35] VITALS: BP 124/55
--- NOTE | 2018-03-29 07:55 | NUR ---
AROUND 19:15 REPORT RECEIVED; PT. ALERT TO PERSON; TRYING TO GET OUT OF BED; MORNING AND COMMING NIGHT NURSE HELP PT. TO GO BACK TO BED; PT ON FALL PRECAUTIONS; BED ALARM ON; YELLOW SUCKS ON; 4 SIDE RAILS UP; NURSE CLOSE TO ROOM; FALL ARM BAND ON; AT 20:30 PT. FOUND OVER FLOOR ON HIS KNEES AND HANDS BY HIDE MILL WORKER NURSE; BED ALARM ON, BUT NOT SOUND GOING OFF; ASSISTANCE REQUESTED IMMEDIATELY; NURSES AND FLOATMAN'S HELPED PUT PT. BACK ON BED; CLEANED; BED CHANGE; SUPERVISORS INFORMS; PROTOCOL FOLLOW; FAMILY AND PIPE JOINTS SUPERVISOR INFORMED; PT. CHANGED TO A ROOM CLOSE TO THE NURSE STATION; DAUGHTER INFORMED AT BED SIDE; POST-FALL ASSESSMENT PERFORMED CHARGED; ABLE TO REST FOR A FEW HOURS DURING THE NIGHT; BS 83; THICKEN LEMON JUICE GIVEN; BS=89 AT MIDNIGHT; BS AT MORNING AROUND 160'S; HMG ABOVE 7 AT 23H; FOLLOWING POC; PASSED ON REPORT.
[2018-03-29 10:15] LABS: HEMATOCRIT 23.8 % (42.0-52.0); MCH 29.4 pg (26.0-34.0); MCHC 33.2 g/dL (28.0-37.0); MCV 88.7 fL (80.0-100.0); RBC 2.69 mil/uL (4.50-6.00); RDW 17.4 % (10.5-14.5); WBC 8.2 thou/uL (4.0-11.0)
[2018-03-29 10:16] LABS: HEMOGLOBIN 7.9 gm/dL (14.0-18.0)
[2018-03-29 10:23] LABS: POTASSIUM 3.5 mmol/L (3.5-5.1)
--- NOTE | 2018-03-29 10:29 | P ---
[facility] [place] [address] PROCEDURE REPORT Name: BHARATI VALVERDE Room #: [facility]- ADM IN M.R.#: [id number] Admission: 03/22/18 Attend Phys: Filemon Ravi MD Discharge: Date of : 31 Report #: [id number] THIS REPORT FOR: //name// CC: Filemon Ocampo DATE OF SERVICE: 03/26/2018 PROCEDURE PERFORMED: Upper endoscopy with bleeding control. HISTORY OF PRESENT ILLNESS: The patient is an 87-year-old male who has a history of upper GI bleed over the weekend underwent 2 upper endoscopies by my partner, Dr. Mansfield, the first one showing large amount of blood within the stomach. He therefore repeated the upper endoscopy the following day, repeat upper scope showed normal esophagus, no blood in the stomach at that time and 3 gastric ulcers in the fundus. Biopsies, which caused some bleeding and was treated with epinephrine and bipolar cautery. The duodenum was normal. The patient was doing well yesterday but then had further drop in his hemoglobin and a large bloody stool last night and also became somewhat hypotensive. His hemoglobin dropped from 7.4 earlier in the day to 6.9 and therefore, given 2 units of packed cells. Hemoglobin after 2 units was 8.2 and today was dropped again to 7.4. No further bloody stools today. He denies any abdominal pain. No nausea or vomiting. Because of his drop in hemoglobin and bloody stool last evening, the plan is for repeat upper endoscopy. DESCRIPTION OF PROCEDURE: The risks and benefits of the procedure were explained to the patient, those risks including but not limited to bleeding, perforation and the risk of sedation. He understood these risks and gave informed consent. The procedure was performed in the ICU room. Sedation was given using propofol per anesthesia. Next, using a standard Olympus upper endoscope, the scope was placed in the patient's mouth and advanced under direct vision through the esophagus, stomach and into the third portion of the duodenum. The larynx was normal in appearance. The esophagus was normal throughout. The GE junction was normal. In the stomach, there again were 3 ulcers noted in the fundus on retroflexion. These range in size from 5 mm-1.5 cm. There was no evidence of active bleeding. There were 2 areas, however, with a small amount of bright red blood when I suctioned these areas. It did cause a small amount of oozing. The tissue was very friable. Again, there was no old blood in the stomach. Because of these 2 areas, I went ahead and treated him with 7-Salvadorean bipolar cautery. There was no evidence of bleeding after cauterization. There was a diffuse mild gastritis noted in the body and the antrum. No evidence of bleeding or ulcers in these areas. The pylorus was normal and patent. The duodenal bulb, first and second portion were normal. I was able to advance the scope into the third portion of the duodenum, a single clean white based 4 mm ulcer was noted here as well. No evidence of blood [facility] [address] [place] [address] PROCEDURE REPORT Name: BHARATI VALVERDE Room #: 205-P [facility] IN M.R.#: [id number] Admission: 03/22/18 Attend Phys: Filemon Ravi MD Discharge: Date of : 31 Report #: [id number] throughout the duodenum. At this point, the scope was then withdrawn and the procedure terminated. The patient tolerated the procedure well. IMPRESSION: 1. Three gastric ulcers again noted in the fundus. No evidence of active bleeding. 2. Small areas of friable gastritis with a small amount of bright red blood. Both areas were treated with bipolar cautery. No evidence of bleeding after cauterization. 3. Diffuse gastritis. 4. Small clean white based ulcer in the third portion of the duodenum. RECOMMENDATIONS: 1. Observe the patient post-procedure. 2. We will restart diet at this time. 3. Continue PPI drip and monitoring hemoglobin closely. If there are signs of further bleeding, may need to consider a nuclear medicine scan or CT arteriogram to consider the possibility of a lower GI bleed at this point. Thank you for allowing me to participate in his care. <ELECTRONICALLY SIGNED> By: Peewee Arceo MD 03/29/18 1029 [id number] Peewee Arceo MD /nt
--- NOTE | 2018-03-29 10:54 | NUR ---
Assess due to length of stay. Admit with gastric and duodenal ulcers s/p cauterization. ST following, upgraded diet and pt tolerating. Wt hx highly variable-was 189 lb 1 yr ago, admitted with wts in 160s, and now showing 181 lb. Tiffanyley transfer to rehab soon. Physician has indicated malnutrition-RD will defer. If po intake drops below 75% of meals, then add oral supplement. Otherwise low nutrition risk
[2018-03-29 11:42] VITALS: BP 127/51
--- NOTE | 2018-03-29 13:25 | NUR ---
PATIENT SEEN TODAY BY TOMA DELGADO FOR REHAB. THERE ARE MEDICAL CONCERNS THAT ARE A BARRIER TO REHAB ADMISSION AT THIS TIME, INCLUDING LOW PLT COUNT, AND VERY LOW ENDURANCE, WELL RESPIRATORY CONCERNS. TODAY, IT IS QUESTIONABLE IF THE PT COULD TOLERATE EVEN A LOW ENDURANCE PROTOCOL THERAPY SCHEDULE ON REHAB, AND WE WILL CONTINUE TO FOLLOW OVER THE WEEKEND REGARDING MEDICAL STABILITY AND ENDURANCE/TOLERANCE OF THE 3 HOUR RULE REQUIREMENT.
[2018-03-29 15:59] VITALS: BP 112/57
--- NOTE | 2018-03-29 18:05 | NUR ---
KIRK EARNESTINE BEEN QUITE RESTLESS THIS PM. KEEP ON ATTEMPTING TO LEAVE BED. HE IS CLOSE TO THE NURSING STATION FOR CLOSE MONITORING. HE HAS NOT HAD A BM TODAY.HAS HAD QUITE A LOT OF FLOTUS. HE IS NOW CALMLY RESTING IN BED. WILL CONT WITH PLAN OF CARE.
[2018-03-29 20:02] VITALS: BP 130/52
[2018-03-30 04:46] LABS: ABSOLUTE NEUTROPHILS 6.7 thou/uL (1.4-8.2); BASOPHILS 0.1 % (0.0-2.0); EOSINOPHILS 0.1 % (0.0-3.0); HEMATOCRIT 23.5 % (42.0-52.0); HEMOGLOBIN 7.8 gm/dL (14.0-18.0); LYMPHOCYTES 6.4 % (24.0-44.0); MCH 29.4 pg (26.0-34.0); MCHC 33.2 g/dL (28.0-37.0); MCV 88.5 fL (80.0-100.0); MONOCYTES 1.7 % (1.0-8.0); PLATELET COUNT 70 thou/uL (150-400); POLYS 91.7 % (36.0-66.0); RBC 2.66 mil/uL (4.50-6.00); RDW 17.7 % (10.5-14.5); WBC 7.3 thou/uL (4.0-11.0)
[2018-03-30 05:09] VITALS: BP 133/68
--- NOTE | 2018-03-30 07:58 | NUR ---
PT. ALERT TO PERSON DURING SHIFT CHANGE; CALM; COOPERATIVE DURING THE NIGHT; VS WNL; RESTING EARLY ON THE NIGHT; AROUND 2100 CALLED AND UPDATED ABOUT PT'S. CONDITION; AT 2100 DAUGHTER AT BED SIDE; INFORMED ABOUT MOTHER CALL AND UPDATE; HEATHER INFORM NURSE THAT PT. HAS HX OF ASTHMA; NO MEDICATION AT HOME FOR IT; ST. HE NEVER HAS ATTACKS "ONE IN A BLUE LOPEZ"; NURSE UNDERSTANDING; PT. ON BED RESTING WITH EYES CLOSE EARLY ON THE NIGHT; AT MIDNIGHT PT. TRIED TO STAND UP AND SIT ON BED; NURSE AND TECH SABILLON TO ROOM; NOTICED PT. RUTHY AND SOB; VS TAKEN; WNL; WHEEZING LUNG SOUND AUDIBLE WITHOUT STETHOSCOPE; PT. HAVING HARD TIME BREATHING; RECOVERY ROOM RN CONTACTED; ORDERS RECEIVED; BREATHING TREATMENT GIVEN; IV STHEROIDS GIVEN; PT. CALMER ON BED; DECREASED WHEEZING ADVENTITIOUS SOUNDS; REQUESTED CONTINUOS PULSE O2; PT. ON 2L; AROUND 0020 PT. CALM; ABLE TO BREATH AND REST WITH EYES CLOSE THROUGH THE NIGHT; O2 SAT MOSTLY ABOVE 94; DESAT. TO 82% ONCE; O2 INCREASE TO 3L; SAT ABOVE 94%; DURING THE MORNIGN O2 TITRATE TO 2L; O2 ABOVE 94%; NO BM; ASSESSMENT CHARGED; FOLLOWING POC. PASSED ON REPORT. CHARGED; FOLLOWING POC;
[2018-03-30 08:50] VITALS: BP 129/62
--- NOTE | 2018-03-30 11:00 | NUR ---
PER DISCUSSION OVER THE PHONE WITH DR. FRANCIS TODAY, DUE TO FRAGILE MEDICAL STATUS, PT TO REMAIN ON CCU UNTIL SUNDAY. NURSE AND DR. MAGDALENO HAVE BEEN UPDATED. WE WILL CONTINUE TO FOLLOW.
[2018-03-30 11:35] VITALS: BP 122/68
[2018-03-30 15:20] VITALS: BP 103/58
--- NOTE | 2018-03-30 18:18 | NUR ---
PATIENT HAS RESTED IN BED THROUGH THE DAY. HAS NOT HAD A BOWEL MOVEMENT TODAY. VALENZUELA IN PLACE AND DRAINING CLEAR YELLOW URINE. HAS NOT ATTEMPTED TO LEAVE BED WITHOUT ASSIST TODAY. CONT TO RECIEVE BT NEB. WILL CONT WITH PLAN OF CARE.
[2018-03-30 20:00] VITALS: BP 124/66
[2018-03-30 20:16] VITALS: BP 124/66
[2018-03-31 03:42] VITALS: BP 108/54
--- NOTE | 2018-03-31 06:20 | NUR ---
ASSUMED CARE OF PT AT 1900. A&Ox1-2. VS STABLE. TRIED TO GET OUT OF BED 2X'S AFTER HAVING A BM. CHANGED, CLEANED, AND PT WAS ABLE TO FOLLOW DIRECTIONS. HAD ASTHMA ATTACK DURING 2ND BM, VERY WHEEZY AND SOA. RESPIRATORY CALLED, BREATHING TX ADMINISTERED. O2 SAT'S 98-100%. BM'S WERE YELLOW/LIGHT BROWN, THICK, NOT TARRY AND NO RAI BLOOD OBSERVERED. PROTONIX INFUSING PER ORDERS. CURRENTLY RESTING AND PROGRESSING TOWARDS POC GOALS.
[2018-03-31 07:45] VITALS: BP 106/58
[2018-03-31 11:15] VITALS: BP 115/57
[2018-03-31 15:40] VITALS: BP 110/51
[2018-03-31 17:03] LABS: BASOPHILS 0.1 % (0.0-2.0); WBC 6.2 thou/uL (4.0-11.0)
[2018-03-31 17:05] LABS: ABSOLUTE NEUTROPHILS 5.6 thou/uL (1.4-8.2); HEMATOCRIT 20.5 % (42.0-52.0); HEMOGLOBIN 6.7 gm/dL (14.0-18.0); LYMPHOCYTES 4.9 % (24.0-44.0); MCHC 32.9 g/dL (28.0-37.0); MCV 88.2 fL (80.0-100.0); MONOCYTES 3.8 % (1.0-8.0); PLATELET COUNT 102 thou/uL (150-400); POLYS 91.2 % (36.0-66.0); RBC 2.33 mil/uL (4.50-6.00); RDW 18.4 % (10.5-14.5)
[2018-03-31 17:30] LABS: ANISOCYTOSIS 2+; MICROCYTES 1+; POLYCHROMASIA 1+
[2018-03-31 17:31] LABS: MACROCYTES 1+; PLATELET ESTIMATE DECREASED
--- NOTE | 2018-03-31 18:22 | NUR ---
ASSUMED CARE OF PT AT 0700. PT ALERT, NOT ORIENTED BUT FOLLOWS COMMANDS AND ABLE TO FEED HIMSELF WITH SETUP. PT HAD BED/CHAIR ALARM ON AND NEXT TO NURSES STATION FOR SAFETY DUE TO HIM TRYING TO GET UP BY HIMSELF. FAMILY VISITED TODAY. PT'S VITALS WITHIN NORMAL LIMITS. PT WAS SINUS RHYTHM ON TELEMETRY. PT CHANGED FROM PROTONIX IV TO PO. WILL CONT WITH POC.
[2018-03-31 19:30] VITALS: BP 96/47
[2018-04-01] VITALS (7 sets, daily range): BP systolic 100–122; BP diastolic 46–55
[2018-04-01 03:53] LABS: HEMATOCRIT 20.9 % (42.0-52.0); HEMOGLOBIN 6.7 gm/dL (14.0-18.0); MCH 28.7 pg (26.0-34.0); MCHC 32.2 g/dL (28.0-37.0); MCV 89.1 fL (80.0-100.0); PLATELET COUNT 127 thou/uL (150-400); RBC 2.35 mil/uL (4.50-6.00); RDW 17.7 % (10.5-14.5); WBC 8.2 thou/uL (4.0-11.0)
--- NOTE | 2018-04-01 04:00 | NUR ---
CRM ANALYST ACTIVATED FOR O2 SAT IN MID 80S AND GENERALIZED CONCERN REGARDING PT'S PRESENTATION. PT IN NO APPARENT DISTRESS ON ASSESSMENT. STAFF DENY ANY SIGNS OF BLEEDING FROM PATIENT. O2 SAT 100% ON 6L, ABLE TO TITRATE DOWN TO 3L. CHART REVIEWED. HGB HAD DROPPED OVER A GRAM IN THE LAST TWO DRAWS WITH LAST BEING <7. CBC REPEATED WITH RESULTS CALLED TO DEAN OF ADMISSIONS AND ORDERS RECEIVED. UPDATED RN ON POC. SEE RAPID INTERVENTION FOR FURTHER DOCUMENTATION.
[2018-04-01 04:27] LABS: ABSOLUTE NEUTROPHILS 5.9 thou/uL (1.4-8.2); NUCLEATED RBCS 1 /100WBC
[2018-04-01 04:29] LABS: ANISOCYTOSIS 1+; PLATELET ESTIMATE DECREASED; POLYCHROMASIA 1+
--- NOTE | 2018-04-01 09:16 | NUR ---
PT IMPULSIVE WITH ACTIVITY THROUGH THE NOC, FOUND SEVERAL TIME WITH O2 OF AND TANGLED IN TUBING, VALENZUELA, BLANKETS, SCD'S, REPOSITIONED SEVERAL TIMES, AT 0330 FOUND IN TANGLED UP POSITION ON HIS BELLY UP AGAINST SIDE RAIL, NO 02 WITH INCREASED RESP AND WHEEZING, REPOSITIONED AND INCREASED O2 TO 4L/NC CALLED RT PT HAD RECOVERED BS WERE CTA, RATE WNL, RT UNABLE TO GET SATS ABOVE 90% INCREASED O2 TO 6L AND STILL NO INCREASE IN SAT, RAPID RESPONSE CALLED AND PT STABILIZED ORDERS RECEIVED FOR 1 UPRC, STARTD AT 0610, PT NOW ON 3L/NC WITH CON'T O2 SAT 98%, NO C/O PAIN, REPORT GIVEN TO NEXT SHIFT TO CON'T WITH PPOC.
[2018-04-01 14:19] LABS: HEMATOCRIT 23.6 % (42.0-52.0); HEMOGLOBIN 7.7 gm/dL (14.0-18.0)
--- NOTE | 2018-04-02 00:15 | NUR ---
AT APPROXIMATELY 2215,PT HR ON MONITOR ELEVATED TO 120S,ON CHECKING ON PT,PT WAS TRYING TO GET OUT OF THE BED, NOTED PT HAD LARGE BM.STAFF STARTED TO CLEAN THE PT UP,PT SEEMED RESTLESS,TRYING SEVERAL TIME TO CLIMB OUT OF THE BED.STAFF ENCOURAGED PT TO STAY CALM TO GET CLEANED UP,AFTER FEW MINUTES PT SUDDENLY STARTED HAVING DIFFICULTIES BREATHING AND BECOMING TACHYPNEIC,HOB ELEVATED ,O2 BUMPED TO 15LITERS AND RT PAGED FOR BREATHING TREATMENT,RIGHT AFTER PT ROLLED HIS EYES AND THAT POINT CODE BLUE WAS ACTIVATED AND CPRSTARTED.RN TALKED TO GRISEL VALVERDE,YUDELKAOA AND UPDATED ON PT'S STATUS..AT 2310,PT WAS PRONOUNCED .
--- NOTE | 2018-04-05 12:41 | HC ---
[facility] [place] [address] CONSULTATION Name: BHARATI VALVERDE Room #: [facility] IN M.R.#: [id number] Admission: 03/22/18 Attend Phys: Filemon Ravi MD Discharge: 04/01/18 Date of : 31 Report #: [id number] THIS REPORT FOR: //name// CC: Filemon Ocampo DATE OF SERVICE: 03/28/2018 HISTORY OF PRESENT ILLNESS: The patient is an 87-year-old male, admitted with dark stools. He was diagnosed with GI bleed, was in shock, had acute renal insufficiency. He underwent EGD, which revealed 3 gastric ulcers. He was noted to have [id number] blood loss anemia. He is being followed closely by Gastroenterology and the otm consultant physician staff. We are seeing him in rehabilitation medicine consultation. 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 He does have a history of some dementia, history of hypothyroidism, diabetic for 15 years, cholesterol, kidney stones, hypertension, depression. ALLERGIES: LORAZEPAM, PENICILLIN, MOXIFLOXACIN. MEDICATIONS: Please see the full medication listing. This includes vitamins, herbals, supplements [id number] as noted. FAMILY HISTORY: Mother had cancer. HABITS: Former smoker, quit greater than a year ago. No history of alcohol abuse. SOCIAL HISTORY: He lives with , 4 steps in, premorbidly was ambulatory without gait aids, although he used to walk around in the community. His son, Brayden, is in a male charge entry clerk here at [facility]. REVIEW OF SYSTEMS: He did not offer any current complaints of chest pain, shortness of breath, or abdominal discomfort. He has right upper extremity weakness. No focal extremity pain complaints. PHYSICAL EXAMINATION: GENERAL: An 87-year-old male, in no obvious distress. VITAL SIGNS: Last recorded temperature 98.7, pulse 81, respirations 18, blood pressure 128/54. NEUROLOGIC: He is alert. Minimal verbalizations. He has an obvious right facial droop. EOMs appeared to be full. He will follow basic 1 step commands. He has functional range of motion of the left upper and left lower extremity with strength probably a grade 3+ to 4-/5. Right upper extremity is hemiparetic [facility] [address] [place] [address] CONSULTATION Name: BHARATI VALVERDE Room #: 205-P [facility] IN M.R.#: [id number] Admission: 03/22/18 Attend Phys: Filemon Ravi MD Discharge: 04/01/18 Date of : 31 Report #: [id number] from old stroke and is probably a grade 2+ to 3. Right lower extremity appears better at least a grade 3+/5. Functionally, he is mod assist with sit to stand, transfers are max assist, mod assist for bathing. ASSESSMENT: An 87-year-old male with the following problems: 1. Medical complexity with generalized debilitation. 2. GI bleed with 3 gastric ulcers. 3. Hypotension. 4. Previous shock, hypovolemic. 5. Prior history of some dementia. 6. Acute renal insufficiency. 7. Premorbid, right-sided hemiparesis, upper extremity greater than lower extremity from stroke in 1997. 8. Diabetes mellitus type 2. PLAN: The patient is to have a bleeding study done per report. Therapies are continuing to work with him. We are considering him for a potential acute in-hospital inpatient rehabilitation stay as he further medically stabilizes. At this point, we will continue to follow along with you regarding his rehab therapy needs. Thank you very much. <ELECTRONICALLY SIGNED> By: Neo Rodriguez MD 04/05/18 1241 [id number] Neo Rodriguez MD /nt
== END 2018-04-01 23:10 | DRG 377 ==
LOC: ER 15:50 → EROBS 16:52 → ICU 16:52 → 2N 03-27 17:43
PROVIDERS: Emergency Medicine; Internal Medicine; Internal Medicine Gastroenterology; Nurse Practitioner; Nurse Practitioner Family; Specialist; ADMIT Hospitalist
PROC: 3E1G88Z Irrigation of Upper GI using Irrigating Substance, Via Natural or Artificial Opening Endoscopic (ICD-10-PCS; principal; 2018-03-23)
PROC: 30233N1 Transfusion of Nonautologous Red Blood Cells into Peripheral Vein, Percutaneous Approach (ICD-10-PCS; principal; 2018-03-23)
PROC: 0DJ08ZZ Inspection of Upper Intestinal Tract, Via Natural or Artificial Opening Endoscopic (ICD-10-PCS; principal; 2018-03-23)
PROC: 0DB68ZX Excision of Stomach, Via Natural or Artificial Opening Endoscopic, Diagnostic (ICD-10-PCS; 2018-03-24)
PROC: 3E0G8GC Introduction of Other Therapeutic Substance into Upper GI, Via Natural or Artificial Opening Endoscopic (ICD-10-PCS; 2018-03-24)
PROC: 02HV33Z Insertion of Infusion Device into Superior Vena Cava, Percutaneous Approach (ICD-10-PCS; 2018-03-25)
PROC: B548ZZA Ultrasonography of Superior Vena Cava, Guidance (ICD-10-PCS; 2018-03-25)
PROC: 0D568ZZ Destruction of Stomach, Via Natural or Artificial Opening Endoscopic (ICD-10-PCS; 2018-03-26)
DX: K25.4 Chronic or unspecified gastric ulcer with hemorrhage (principal); N17.1 Acute kidney failure with acute cortical necrosis; E46 Unspecified protein-calorie malnutrition; D62 Acute posthemorrhagic anemia; I69.351 Hemiplegia and hemiparesis following cerebral infarction affecting right dominant side; K26.4 Chronic or unspecified duodenal ulcer with hemorrhage; R57.1 Hypovolemic shock; F03.90 Unspecified dementia, unspecified severity, without behavioral disturbance, psychotic disturbance, mood disturbance, and anxiety; E03.9 Hypothyroidism, unspecified; E11.9 Type 2 diabetes mellitus without complications; F32.9 Major depressive disorder, single episode, unspecified; E11.65 Type 2 diabetes mellitus with hyperglycemia; T68.XXXA Hypothermia, initial encounter; I95.9 Hypotension, unspecified; E78.00 Pure hypercholesterolemia, unspecified; N18.9 Chronic kidney disease, unspecified; E11.22 Type 2 diabetes mellitus with diabetic chronic kidney disease; I35.0 Nonrheumatic aortic (valve) stenosis; E78.5 Hyperlipidemia, unspecified; E87.6 Hypokalemia; J45.909 Unspecified asthma, uncomplicated; C61 Malignant neoplasm of prostate; Z87.442 Personal history of urinary calculi; Z88.0 Allergy status to penicillin; Z88.8 Allergy status to other drugs, medicaments and biological substances; Z87.891 Personal history of nicotine dependence; Z79.82 Long term (current) use of aspirin; Z79.899 Other long term (current) drug therapy; Z68.29 Body mass index [BMI] 29.0-29.9, adult; I69.320 Aphasia following cerebral infarction
CPT/HCPCS: 10078; 10081; 10203; 20056; 62110; 62900